=== PATIENT | male | born 1990 | race African-American/Black ===

== ENCOUNTER 2017-10-19 13:03 | Outpatient (CLI) | payer OTHER ==
[2017-10-19] MEDS ORDERED: IOTHALAMATE MEGLUMINE 50 ML VIAL ONE (13:30)
[2017-10-19] MEDS ORDERED: LIDOCAINE 1% 10 ML MDV ONE (13:30)
[2017-10-19] MEDS ORDERED: GADOPENTETATE DIMEGLUMINE 5 ML VIAL IVP ONE ×2 (13:31→14:43)
[2017-10-19] MEDS ORDERED: BUFFERED LIDOCAINE 10 ML SYRINGE IU ONE (14:43)
[2017-10-19] MEDS ORDERED: LIDOCAINE 1% 10 ML MDV SUBQ ONE (14:43)
[2017-10-19] MEDS ORDERED: IOTHALAMATE MEGLUMINE 50 ML VIAL IVP ONE (14:43)
--- NOTE | 2017-10-19 15:42 | XRAY Report ---
EXAM: ATTEMPTED FLUOROSCOPICALLY GUIDED LEFT SHOULDER INJECTION FOR MR ARTHROGRAM: CLINICAL INDICATION: Pain. FINDINGS: Following obtaining informed consent, the patient's left shoulder was prepped and draped in the usual sterile fashion. The skin and soft tissues were anesthetized with lidocaine. Multiple attempts were made to access the left shoulder joint via a rotator interval approach, but these opacified a large anterior bursa and did not opacify the joint space. Given the opacification of the large bursa, further attempts were discontinued, and the patient will be rescheduled for the arthrogram when contrast can dissipate. IMPRESSION: UNSUCCESSFUL LEFT SHOULDER INJECTION FOR MR ARTHROGRAM. THIS EXAMINATION SHOULD BE AT NO CHARGE TO THE PATIENT. FLUOROSCOPY TIME: 8 minutes 26 seconds; 1 spot image obtained. MD ABIMBOLA Bear/MACKENZIE TD: 10/19/2017 15:40 MTDD
== END 2017-10-19 13:04 | disposition home or self-care (01) ==
LOC: DI 13:03
PROVIDERS: ATTEND Family Medicine
DX: M25.512 Pain in left shoulder (principal); Z53.8 Procedure and treatment not carried out for other reasons

== ENCOUNTER 2017-10-21 13:43 | Outpatient (CLI) | payer OTHER ==
[2017-10-21] MEDS ORDERED: LIDOCAINE 1% 10 ML MDV ONE (14:01)
[2017-10-21] MEDS ORDERED: IOTHALAMATE MEGLUMINE 50 ML VIAL ONE (14:01)
[2017-10-21] MEDS ORDERED: GADOPENTETATE DIMEGLUMINE 5 ML VIAL IVP ONE ×3 (14:02→14:50)
[2017-10-21] MEDS ORDERED: IOTHALAMATE MEGLUMINE 50 ML VIAL IVP ONE ×2 (14:50)
[2017-10-21] MEDS ORDERED: LIDOCAINE 1% 10 ML MDV SUBQ ONE ×2 (14:50)
[2017-10-21] MEDS ORDERED: BUFFERED LIDOCAINE 10 ML SYRINGE IU ONE ×2 (14:50)
--- NOTE | 2017-10-21 16:17 | MRI Report ---
EXAM: LEFT SHOULDER MRI ARTHROGRAM WITH CONTRAST EXAM DATE: 10/21/2017 03:04 PM. CLINICAL HISTORY: LT SHOULDER PAIN. COMPARISON: None. TECHNIQUE: Multiplanar, multisequence T1-weighted and fluid-sensitive sequences of the shoulder after an arthrographic injection of dilute gadolinium, dictated under a separate exam. Other: None. FINDINGS: Acromioclavicular Region: The acromion is unipartite type II without significant downsloping. Very mi ld degenerative changes of the acromioclavicular joint without edema, effusion, or joint separation o r significant undersurface hypertrophic spur. The acromioclavicular, coracoacromial and coracoclavicu lar ligaments are intact. There is no contrast or significant fluid in the subacromial/subdeltoid bur sa. Glenohumeral Region: No subluxation. No loose bodies. The articular cartilage is unremarkable. The gl enohumeral ligaments and joint capsule are unremarkable. Bone Marrow: No fracture, marrow edema. There is a Hill-Sachs lesion, probably chronic, without acute edema. No Bankart's lesion is demonstrated. Labrum: The labrum is unremarkable. Biceps Tendon: The long head of the biceps tendon, biceps anchor and biceps kennedy are intact. Musculature/Rotator Cuff: Mild tendinosis of the supraspinatus without tear. The subscapularis, infra spinatus and teres minor tendons are intact. Moderate diffuse edema in the infraspinatus muscle belly suggestive of muscular strain or mild partial thickness tear. No fatty atrophy. Other: The subcutaneous tissues are unremarkable. IMPRESSION: 1. Moderate diffuse edema in the infraspinatus muscle belly suggestive of muscular strain or mild par tial thickness tear. No focal hematoma. 2. Mild tendinosis of the supraspinatus without tear. 3. There is a Hill-Sachs lesion, probably chronic, without acute edema. No bony Bankart's lesion is d emonstrated. 4. No labral tear or soft tissue Bankart's lesion. [facility] MUSCULOSKELETAL RADIOLOGY SECTION Referring Provider Line: [phone] SITE ID: [id number]
--- NOTE | 2017-10-21 17:57 | XRAY Report ---
DATE OF SERVICE: 10/21/2017 EXAM: FLUOROSCOPICALLY GUIDED LEFT SHOULDER INJECTION FOR MR ARTHROGRAM CLINICAL INDICATION: Left shoulder pain, history of labral tear, reinjury. PROCEDURE: Following obtaining informed consent, the patient was positioned on the fluoroscopic tabl e for a prone approach to the left shoulder. The skin was prepped and draped in the usual sterile fashion. Under fluoroscopic guidance, the skin and soft tissues were anesthetized. A spinal needle was inserted into the posteri or aspect of the glenohumeral joint, and following confirmation of needle positioning, a combination of iodinated contrast, dilute gadolinium, and lidocaine was injected intraarticularly. The patient tolerated the procedure well. No immediate complications. IMPRESSION: SUCCESSFUL LEFT SHOULDER INJECTION FOR MR ARTHROGRAM VIA A POSTERIOR APPROACH. FLUOROSCOPY TIME: 1 MINUTE 20 SECONDS; 1 SPOT IMAGE OBTAINED. TD: 10/21/2017 16:43
== END 2017-10-21 13:44 | disposition home or self-care (01) ==
LOC: DI 13:43
PROVIDERS: ATTEND Family Medicine
DX: M75.82 Other shoulder lesions, left shoulder (principal); R60.0 Localized edema
CPT/HCPCS: 23350; 73222; 77002; Q9961

== ENCOUNTER 2018-03-22 12:35 | Emergency (ER) | payer OTHER ==
[2018-03-22 12:51] VITALS: BP 171/100
[2018-03-22 13:11] LABS: MUDS CUTOFF CONCENTRATIONS CUTOFF CONC BELOW:
[2018-03-22 13:13] LABS: BILIRUBIN,URINE NEGATIVE (NEGATIVE); GLUCOSE, URINE (UA) NEGATIVE (NEGATIVE); KETONES,URINE (UA) NEGATIVE (NEGATIVE); LEUKOCYTE ESTERASE, URINE NEGATIVE (NEGATIVE); NITRITE,URINE NEGATIVE (NEGATIVE); OCCULT BLOOD,URINE NEGATIVE (NEGATIVE); PROTEIN,URINE NEGATIVE (NEGATIVE); UROBILINOGEN,URINE 0.2 (NORMAL) E.U./dL (NORMAL)
[2018-03-22 13:25] LABS: CLARITY,URINE CLEAR (CLEAR)
--- NOTE | 2018-03-22 13:25 | ED Physician Documentation ---
PD HPI MHE - Stated complaint Stated Complaint: MHE - Chief complaint Chief Complaint: MHE - History obtained from History obtained from: Patient - History of Present Illness Primary symptom: Suicidal ideation, Depression. No: Suicide attempt Timing - onset: How many months ago (has had months of depression after a demotion at work in this past August. He has been depressed, arguing often at home with his . Has a 6 month old child (girl) at home. He says he has been drinking regularly to ease the depression. Denies drug use. Made an appt with psych counselor that was to be this morning and it was postponed by the clinic. He is more depressed from that. Has had some suicidal ideation without plan. I wanting help.) Contributing factors: Family, Money, Substance abuse - ETOH (he feel he has been drinking too much and regularly as an escape method from the problems.). No: Substance abuse - drugs Similar symptoms before: No diagnosis Review of Systems Constitutional: denies: Fever, Chills Nose: denies: Rhinorrhea / runny nose, Congestion Throat: denies: Sore throat Respiratory: denies: Cough GI: denies: Abdominal Pain, Nausea, Vomiting, Diarrhea : denies: Dysuria, Frequency Musculoskeletal: denies: Neck pain, Back pain Neurologic: denies: Generalized weakness, Focal weakness, Numbness Psychiatric: reports: Depressed, Anxiety, Insomnia. denies: Homicidal, Hallucinations, Delusions Endocrine: denies: Weight loss (but says he has not had much appetite and not eating regularly.), Weight gain, Easy bruising / bleeding PD PAST MEDICAL HISTORY - Past Medical History Past Medical History: No Respiratory: None Neuro: None Endocrine/Autoimmune: None GI: None HEENT: None Psych: None - Past Surgical History Past Surgical History: No - Present Medications Home Medications: Ambulatory Orders Medication Instructions Recorded Confirmed Cholecalciferol [Vitamin D3] 5,000 unit PO DAILY #30 capsule 03/22/18 Lorazepam [Ativan] 1 mg PO QPM PRN #10 tablet 03/22/18 - Allergies Allergies/Adverse Reactions: Allergies Allergy/AdvReac Type Severity Reaction Status Date / Time No Known Drug Allergies Allergy Verified 03/22/18 12:51 - Social History Does the pt smoke?: No Smoking Status: Never smoker Does the pt drink ETOH?: Yes Does the pt have substance abuse?: No PD ED PE NORMAL - Vitals Vital signs reviewed: Yes - General General: Alert and oriented X 3, Well developed/nourished - HEENT HEENT: Pharynx benign - Neck Neck: Supple, no meningeal sign, No adenopathy - Cardiac Cardiac: RRR, No murmur - Respiratory Respiratory: Clear bilaterally - Abdomen Abdomen: Soft, Non tender - Derm Derm: Normal color, Warm and dry - Neuro Neuro: Alert and oriented X 3, No motor deficit, Normal speech Eye Opening: Spontaneous Motor: Obeys Commands Verbal: Oriented GCS Score: 15 - Psych Psych: No: Normal mood (depressed), Normal affect (sad) Results - Vitals Vitals: Vital Signs - 24 hr 03/22/18 12:44 Temperature 36.3 C L Heart Rate 53 L Respiratory 16 Rate Blood Pressure 171/100 H O2 Saturation 100 Oxygen O2 Source Room air - Labs Labs: Laboratory Tests 03/22/18 03/22/18 03/22/18 13:10 13:12 13:12 WBC 7.8 RBC 5.22 Hgb 15.0 Hct 45.2 MCV 86.7 MCH 28.8 MCHC 33.3 RDW 15.0 Plt Count 180 MPV 9.4 Neut # 4.3 Lymph # 2.4 Pleasants # 1.0 Eos # 0.0 Baso # 0.1 Absolute Nucleated RBC 0.01 Nucleated RBC % 0.1 Platelet Morphology RARE GIANT PLATELETS Sodium 138 Potassium 4.2 Chloride 103 Carbon Dioxide 27 Anion Gap 8.0 BUN 16 Creatinine 1.2 Estimated GFR (MDRD) 87 L Glucose 110 H Calcium 9.4 Total Bilirubin 0.8 AST 34 ALT 37 Alkaline Phosphatase 71 Total Protein 8.3 H Albumin 4.4 Globulin 3.9 Albumin/Globulin Ratio 1.1 Lipase 36 TSH Urine Color YELLOW Urine Clarity CLEAR Urine pH 7.0 Ur Specific [place] 1.015 Urine Protein NEGATIVE Urine Glucose (UA) NEGATIVE Urine Ketones NEGATIVE Urine Occult Blood NEGATIVE Urine Nitrite NEGATIVE Urine Bilirubin NEGATIVE Urine Urobilinogen 0.2 (NORMAL) Ur Leukocyte Esterase NEGATIVE Ur Microscopic Review NOT INDICATED Urine Culture Comments NOT INDICATED Salicylates < 6.0 Urine Opiates Screen NEGATIVE Ur Oxycodone Screen NEGATIVE Urine Methadone Screen NEGATIVE Ur Propoxyphene Screen NEGATIVE Acetaminophen < 10 L Ur Barbiturates Screen NEGATIVE Ur Tricyclics Screen NEGATIVE Ur Phencyclidine Scrn NEGATIVE Ur Amphetamine Screen NEGATIVE U Methamphetamines Scrn NEGATIVE U Benzodiazepines Scrn NEGATIVE Urine Cocaine Screen NEGATIVE U Cannabinoids Screen NEGATIVE Ethyl Alcohol < 5.0 03/22/18 13:12 WBC RBC Hgb Hct MCV MCH MCHC RDW Plt Count MPV Neut # Lymph # [place]as[place] # Eos # Baso # Absolute Nucleated RBC Nucleated RBC % Platelet Morphology Sodium Potassium Chloride Carbon Dioxide Anion Gap BUN Creatinine Estimated GFR (MDRD) Glucose Calcium Total Bilirubin AST ALT Alkaline Phosphatase Total Protein Albumin Globulin Albumin/Globulin Ratio Lipase TSH 0.87 Urine Color Urine Clarity Urine pH Ur Specific [place] Urine Protein Urine Glucose (UA) Urine Ketones Urine Occult Blood Urine Nitrite Urine Bilirubin Urine Urobilinogen Ur Leukocyte Esterase Ur Microscopic Review Urine Culture Comments Salicylates Urine Opiates Screen Ur Oxycodone Screen Urine Methadone Screen Ur Propoxyphene Screen Acetaminophen Ur Barbiturates Screen Ur Tricyclics Screen Ur Phencyclidine Scrn Ur Amphetamine Screen U Methamphetamines Scrn U Benzodiazepines Scrn Urine Cocaine Screen U Cannabinoids Screen Ethyl Alcohol PD MEDICAL DECISION MAKING - ED course Complexity details: considered differential, d/w patient, d/w email production consultant ( [employer]- who set up dispo plan with his command and there is appt for counseling for tomorrow. He has not had good sleep, so I felt okay giving Rx for med to help with that. Might also get some withdrawal if not having alcohol and discussed that with him. ) Departure - Departure Disposition: 01 Home, Self Care Clinical Impression: Suicidal ideation Depression Qualifiers: Depression Type: reactive depression Qualified Code(s): F32.9 - Major depressive disorder, single episode, unspecified Insomnia Qualifiers: Insomnia type: unspecified Qualified Code(s): G47.00 - Insomnia, unspecified Condition: Stable Record reviewed to determine appropriate education?: Yes Instructions: ED Depression Follow-Up: [facility] [Provider Group] Prescriptions: Cholecalciferol [Vitamin D3] 5,000 unit PO DAILY #30 capsule Lorazepam [Ativan] 1 mg PO QPM PRN #10 tablet PRN Reason: Insomnia Comments: Drink lots of fluids. Follow-up with counseling tomorrow as scheduled. Start vitamin D daily as a mild antidepressant. This is simple and easy and often helps. The counseling services may want to add other antidepressants as well. Not sleeping well does not help and so he can use Lorazepam 1-2 mg at night for sleep over the next few nights and see if that helps as well. Avoid alcohol. Regular diet is good. Some light to daily exercise is also helpful. Discharge Date/Time: 03/22/18 17:11
[2018-03-22 13:26] LABS: AMPHETAMINE SCREEN,URINE NEGATIVE (NEGATIVE); BENZODIAZEPINES SCREEN, URINE NEGATIVE (NEGATIVE); COCAINE SCREEN URINE NEGATIVE (NEGATIVE); METHADONE SCREEN, URINE NEGATIVE (NEGATIVE); METHAMPHETAMINES SCREEN, URINE NEGATIVE (NEGATIVE); OPIATE SCREEN, URINE NEGATIVE (NEGATIVE); OXYCODONE SCREEN, URINE NEGATIVE (NEGATIVE); PROPOXYPHENE SCREEN, URINE NEGATIVE (NEGATIVE); TRICYCLIC ANTIDEPRESSANT,URINE NEGATIVE (NEGATIVE)
[2018-03-22 13:27] LABS: BASOPHILS # (AUTO) 0.1 10^3/uL (0.0-0.1); BASOPHILS % (AUTO) 1.2 %; EOSINOPHILS % (AUTO) 0.3 %; LYMPHOCYTES # (AUTO) 2.4 10^3/uL (1.5-3.5); LYMPHOCYTES % (AUTO) 30.6 %; MEAN CORPUSCULAR HEMOGLOBIN 28.8 pg (27.0-31.0); MEAN CORPUSCULAR HGB CONC 33.3 g/dL (32.0-36.0); MEAN CORPUSCULAR VOLUME 86.7 fL (80.0-94.0); MEAN PLATELET VOLUME 9.4 fL (7.4-11.4); MONOCYTES % (AUTO) 12.3 %; NEUTROPHILS # (AUTO) 4.3 10^3/uL (1.5-6.6); NEUTROPHILS % (AUTO) 55.6 %; PLT - PLATELET COUNT 180 10^3/uL (130-450); RED BLOOD COUNT 5.22 10^6/uL (4.70-6.10); WHITE BLOOD COUNT 7.8 x10^3/uL (4.8-10.8)
[2018-03-22 13:36] LABS: ALBUMIN 4.4 g/dL (3.2-5.5); ALBUMIN/GLOBULIN RATIO 1.1 (1.0-2.2); ALKALINE PHOSPHATASE 71 IU/L (42-121); ALT ALANINE AMINOTRANSFERASE 37 IU/L (10-60); AST ASPARTATE AMINOTRANSFERASE 34 IU/L (10-42); BILIRUBIN,TOTAL 0.8 mg/dL (0.2-1.0); BUN - BLOOD UREA NITROGEN 16 mg/dL (6-20); CALCIUM 9.4 mg/dL (8.5-10.3); CARBON DIOXIDE - CO2 27 mmol/L (21-32); CHLORIDE 103 mmol/L (101-111); CREATININE 1.2 mg/dL (0.6-1.2); GFR - MDRD 87 (>89); GLUCOSE 110 mg/dL (70-100); LIPASE 36 U/L (22-51); SALICYLATE < 6.0 mg/dL; SODIUM 138 mmol/L (135-145); TOTAL PROTEIN 8.3 g/dL (6.7-8.2)
[2018-03-22 13:40] LABS: ACETAMINOPHEN < 10 ug/mL (10-30)
[2018-03-22 14:06] LABS: PLATELET MORPHOLOGY RARE GIANT PLATELETS (NORMAL)
== END 2018-03-22 17:11 | disposition home or self-care (01) ==
LOC: ED 12:35
DX: R45.851 Suicidal ideations (principal); F32.9 Major depressive disorder, single episode, unspecified; G47.00 Insomnia, unspecified
CPT/HCPCS: 36415; 80053; 80306; 80307; 80320; 80329; 81001; 81003; 83690; 84443; 85025; 87086; 99283; 99284